=== PATIENT | male | born 1955 | race Caucasian/White ===

== ENCOUNTER → 2018-11-17 | Outpatient (CLI) | payer BC ==
[~2018-11-17] MED LIST: ALBU2.5V5; Advair Hfa 230-12 GM; CETI5; Curcumin1 GM; Famotidine20 MG/2 ML; GABA100; GLUC500; Hair, Skin & N1 EACH; IBUP100S; Lisinopril2.5 MG; MAGSULP; METCAR500; MONT4
== END | disposition home or self-care (01) ==
LOC: LAB EV 15:21 → LAB SHORT 15:21
DX: H60.91 Unspecified otitis externa, right ear (principal)
CPT/HCPCS: 87070; 87077; 87147; 87186; 87205

== ENCOUNTER → 2019-05-30 | Outpatient (CLI) | payer BC | END | disposition home or self-care (01) | LOC: PLD 11:50 → LAB SHORT 11:50 | DX: D22.39 Melanocytic nevi of other parts of face (principal) | CPT/HCPCS: 88305 ==

== ENCOUNTER → 2021-08-02 | Outpatient (CLI) | payer BC | END | disposition home or self-care (01) | LOC: LAB SHORT 12:39 → LAB 12:39 | DX: D22.61 Melanocytic nevi of right upper limb, including shoulder (principal) | CPT/HCPCS: 88305 ==

== ENCOUNTER → 2022-08-02 | Outpatient (CLI) | payer BC | END | disposition home or self-care (01) | LOC: LAB SHORT 09:08 → LAB 09:08 | DX: D48.5 Neoplasm of uncertain behavior of skin (principal) | CPT/HCPCS: 88305 ==